=== PATIENT | female | born 1935 | race Caucasian/White ===

== ENCOUNTER 2016-09-22 16:31 | Emergency (ER) | payer OTHER, MEDICARE ==
[~2016-09-22] VITALS: Ht 160 cm; Wt 85.0 kg
[2016-09-22 16:35] VITALS: Ht 160 cm; Wt 85.0 kg
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
[2016-09-22] MEDS ORDERED: MORPHINE SULFATE 4 MG SYRINGE IM ONE ×2 (19:00→23:00)
[2016-09-22] MEDS ORDERED: OMEP20CA10 PO (19:09)
[2016-09-22] MEDS ORDERED: DOCU100T10 PO (19:09)
[2016-09-22] MEDS ORDERED: ACET-62 PO (19:09)
[2016-09-22] MEDS ORDERED: ASPI81TA2 PO (19:09)
[2016-09-22] MEDS ORDERED: MULT1TAB69 PO (19:09)
[2016-09-22] MEDS ORDERED: TEMA15CA PO (19:09)
[2016-09-22] MEDS ORDERED: CARB1TAB20 PO (19:09)
--- NOTE | 2016-09-22 19:27 | NUR ---
IMAGING PT TO IMAGING VIA CART AT THIS TIME. MORPHINE GIVEN FOR COMFORT PRIOR TO.
--- NOTE | 2016-09-22 19:50 | NUR ---
IMAGING PT RETURN FROM IMAGING
--- NOTE | 2016-09-22 20:44 | NUR ---
IMAGING PT TO IMAGING AT THIS TIME.
--- NOTE | 2016-09-22 23:00 | NUR ---
STATUS PT DENIES PAIN AT THIS TIME. STATES IF SHE DOES NOT MOVE, SHE IS NOT IN ANY PAIN. FAMILY AT BEDSIDE. DENIES NEEDS AT THIS TIME.
[2016-09-22] MEDS ORDERED: TRAM50TA4 PO (23:19)
[2016-09-23] MEDS ORDERED: MORPHINE SULFATE 4 MG SYRINGE IV ONE (00:30)
--- NOTE | 2016-09-23 00:50 | NUR ---
REPORT TO [facility] REPORT CALLED TO NICOLLE QUEVEDO AT [facility] AT THIS TIME.
[2016-09-23 01:20] VITALS: BP 154/81; PULSE 93; RESP 20; TEMP 97.6; O2SAT 91
--- NOTE | 2016-09-23 01:20 | NUR ---
DEPART/TRANSFER PT TRANSFER TO [place] AT THIS TIME VIA [facility]. LEFT ARM SPLINTED AND IN SLING. NO SIGN OF DISTRESS.
--- NOTE | 2016-09-23 08:47 | DI ---
Indication: ITS.REASON: shoulder replacement, ?acute versus chronic dislocation PROCEDURE: CT UPPER EXTREMITY LT W/O CONT: Encounter: Initial Comparison: None Technique: Axial noncontrast CT imaging of the left shoulder was performed with coronal and sagittal two-dimensional reformats and three-dimensional surface shaded volume rendered imaging. Automated Exposure Control and Iterative Reconstruction dose reducing techniques were utilized. Findings: Left shoulder hemiprosthesis is dislocated anteriorly and inferiorly. The glenoid is severely abnormal with flattening and fragmentation which appears predominantly chronic. Left hemithorax is abnormal with multiple left-sided rib deformities and areas of scarring or atelectasis in the left lung. Metallic artifact from the shoulder replacement. Acute appearing fractures of the left posterior first and second ribs. Old healed fracture deformity in the third, fourth and fifth lateral ribs. Chronic appearing ununited fracture of the left T1 transverse process. No fluid collection or abscess. Impression: There are both acute and chronic left upper rib fractures. There is fragmentation and deformity of the glenoid which appears mostly chronic. The humeral head dislocation may be acute or chronic. There is a preliminary report by [facility]. .
--- NOTE | 2016-09-23 08:52 | DI ---
Indication: ITS.REASON: pain posterior after fall PROCEDURE: SHOULDER LEFT 2-3 VIEWS: Encounter: Initial Comparison: CT of the left shoulder from the same date Findings: There is a left shoulder prosthesis in place. There is fragmentation and deformity of the glenoid which appears mostly chronic. The humeral head replacement is dislocated anteriorly and inferiorly. There are chronic appearing left lateral rib deformities. There were acute appearing fractures which are visible in the left second posterior rib. Impression: Acute left second rib fracture. Dislocation of the left humeral head replacement of uncertain acuity. .
--- NOTE | 2016-09-23 08:54 | DI ---
Indication: ITS.REASON: pain after fall PROCEDURE: ELBOW LEFT 3 VIEW: Encounter: Initial Comparison: None Findings: Mildly distracted fracture of the olecranon process. Possible subtle impaction fracture of the radial neck seen on the AP view only. No additional acute fracture or dislocation seen. Impression: Closed posttraumatic olecranon process and possible radial neck fractures. .
== END 2016-09-23 01:20 | disposition short-term general hospital (02) ==
LOC: ED 16:31
DX: S52.022A Displaced fracture of olecranon process without intraarticular extension of left ulna, initial encounter for closed fracture (principal); S42.92XA Fracture of left shoulder girdle, part unspecified, initial encounter for closed fracture; S22.32XA Fracture of one rib, left side, initial encounter for closed fracture; W17.89XA Other fall from one level to another, initial encounter; Y93.89 Activity, other specified; Y92.9 Unspecified place or not applicable; Y99.8 Other external cause status
CPT/HCPCS: 96372